=== PATIENT | male | born 1975 | race Caucasian/White ===

== ENCOUNTER 2024-03-05 13:00 | Outpatient (RCR) | payer MEDICAID, SELFPAY ==
[2024-02-23 12:07] VITALS: BP 120/80; PULSE 68; TEMP 37.1
[2024-02-23 12:08] VITALS: BMI 31.1
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
--- NOTE | 2024-02-23 23:51 | P.HPPSP_ITS ---
[facility] Date of Service: 02/23/24 Chief Complaint: depression,anxiety Sources of Information: patient interviewed, chart reviewed and crisis/core team assessment reviewed Additional Sources of Information: Patient prefers to go by [facility] Narrative: This is the first [facility] admission for this 48 yo male with depression who was referred by his PCP office. I've been on a number of waiting lists (to see a psych provider) but it hasn't been going anywhere . He reports that his PCP has tried him on some antidepressant medications but he feels it's not doing much . He reports a history of alcoholism and cannabis addiction and says he has endeavored to live a sober life for the past 8 years , he had a relapse 3 years ago, it's not been easy but says he recognizes that he had been using substances as a way to numb certain feelings . He says he has also been clear of all substances including caffeine and nicotine for the past 2 yrs, 9 months, 20 days. [facility] Medical History (Updated 03/04/24 @ 09:03 by Quiana Hernández MD) Amblyopia of both eyes Psoriasis Femur fracture Surgical History (Updated 02/23/24 @ 12:03 by Natalya Elliott RN) History of hip replacement H/O splenectomy Diagnostics Vital Signs (24Hr): Vital Signs - 24 hr 02/23/24 12:07 Temperature 98.8 F Pulse Rate 68 Blood Pressure 120/80 BMI result Body Mass Index 31.1 Meds/Allergies Meds Home Medications ?Medication ?Instructions ?Recorded ?Confirmed ?Type escitalopram oxalate 10 mg tablet 10 mg PO DAILY 02/23/24 02/23/24 History nicotine (polacrilex) 4 mg gum See Rx Instructions .Route .COMPLEX 02/23/24 02/23/24 History Allergies Allergies Allergy/AdvReac Type Severity Reaction Status Date / Time No Known Allergies Allergy Verified 02/23/24 12:04 Mental Status Exam Mental Status Exam Narrative: MSE:Alert, oriented, in no acute distress. Calm, cooperative, engaged. No psychomotor agitation or neurovegetative retardation. Eye contact maintained. Mood depressed, affect constricted. Speech normal. Thought process linear, coherent. Thought content related to stressors, transient hopelessness, denies SI or HI. No paranoia or delusional content elicited. No evidence of psychosis. Insight and judgment - fair but adequate. Telehealth Telehealth Telehealth Platform: Other (please specify) ([employer]) Location of provider rendering services: other (private office) Location of patient: other ([facility]) Patient Identification confirmed using: Name, : Yes Telehealth method: video Patient verbally consented to treatment: Yes Assessment & Plan Assessment & Plan (1) MDD (major depressive disorder), recurrent severe, without psychosis: Status: Acute Code(s): F33.2 - Major depressive disorder, recurrent severe without psychotic features (2) PRINCE (generalized anxiety disorder): Status: Acute Code(s): F41.1 - Generalized anxiety disorder (3) Cannabis dependence in remission: Status: Acute Code(s): F12.21 - Cannabis dependence, in remission (4) Alcohol dependence in remission: Status: Acute Code(s): F10.21 - Alcohol dependence, in remission Plan Admit to [facility] VS reviewed: abrefile, BP 120/80;?68 bpm increase escitalopram to 20 mg qd continue other regular medications Routine lab work ordered as indicated EKG, routine for baseline QTc for medication considerations as indicated UDS as indicated MassPat reviewed Continue to monitor as per protocol Patient educated on: diagnosis, medication risk/benefits and substance abuse Informed Consent: understands Reason for continued partial hosp. stay Substantial Risk for: inability to function, rapid decompensation and med/psych decompensation Certification I certify that partial hospital treatment is medically necessary due to the symptoms and problems resulting from the patient's mental illness and the failure to treat the patient at the partial hospital level of care would likely result in the patient requiring inpatient psychiatric care which could not be prevented at a less intensive level of care. Time Spent With Patient Time: Total time managing care of this patient today __60__ minutes.
--- NOTE | 2024-02-24 14:27 | HO.PHP ---
PHP AdminShira informed the team that Howard will not be in attendance to program today due to transportation not picking him up, no safety concerns reported. Howard will be in attendance to program tomorrow.
--- NOTE | 2024-03-05 23:05 | P.PNPSP_ITS ---
Subjective Subjective Date of Service: 03/05/24 Reason For Visit: depression,anxiety Interim History: Patient seen for follow-up, anticipating discharge at the end of program today.? Reports no acute issues or concerns. Medication compliant, medications well- tolerated. Denies any adverse effects.? Mood is stable.? Denies any hopelessness or SI. Denies thoughts of harming self or others at this time. Denies any aggressive ideation or HI. Denies any paranoia or AH or VH. Sleep, appetite, energy stable. Alert, oriented, in no acute distress. Calm, cooperative. Mood stable, affect appropriate. Speech normal. Thought process linear, coherent, more goal- directed. Thought content related to stressors, future-oriented, denies any helplessness, hopelessness or SI.? No aggressive ideation or HI. No paranoia or delusional content elicited. No evidence of psychosis. Insight and judgment f air-good. Discharge from [facility] Continue regular medications Refills sent to pharmacy Will defer further medication management to outpatient provider *Safety plan reviewed *Discharge diagnoses, treatment course, discharge plan have been reviewed with patient (including medication regime, medication management, potential side effects) as well as treatment rationale were also revisited *Discharge paperwork signed and given to patient, copy sent for scanning to chart Mental Status Exam Mental Status Exam Narrative: MSE:Alert, oriented, in no acute distress. Calm, cooperative, engaged. No psychomotor agitation or neurovegetative retardation. Eye contact maintained. Mood depressed, affect constricted. Speech normal. Thought process linear, coherent. Thought content related to stressors, transient hopelessness, denies SI or HI. No paranoia or delusional content elicited. No evidence of psychosis. Insight and judgment - fair but adequate. Diagnostics Vital Signs (24Hr): BMI result Body Mass Index 31.1 Assessment & Plan Assessment & Plan (1) MDD (major depressive disorder), recurrent severe, without psychosis: Status: Acute Code(s): F33.2 - Major depressive disorder, recurrent severe without psychotic features (2) PRINCE (generalized anxiety disorder): Status: Acute Code(s): F41.1 - Generalized anxiety disorder (3) Cannabis dependence in remission: Status: Acute Code(s): F12.21 - Cannabis dependence, in remission (4) Alcohol dependence in remission: Status: Acute Code(s): F10.21 - Alcohol dependence, in remission Plan Admit to [facility] VS reviewed: gracie, BP 120/80;?68 bpm increase escitalopram to 20 mg qd continue other regular medications Routine lab work ordered as indicated EKG, routine for baseline QTc for medication considerations as indicated UDS as indicated MassPat reviewed Continue to monitor as per protocol Certification I certify that partial hospital treatment is medically necessary due to the symptoms and problems resulting from the patient's mental illness and the failure to treat the patient at the partial hospital level of care would likely result in the patient requiring inpatient psychiatric care which could not be prevented at a less intensive level of care. Total time managing care of this patient today ____ minutes. Discharge Plan Discharge Attending provider: Quiana Hernández Medications: New nicotine 14 mg/24 hr patch 24 hour 1 patch transdermal DAILY Qty: 14 0RF Rx Instructions: apply one patch daily; remove patch every evening before bed bupropion HCl 100 mg tablet sustained-release 12 hr 100 mg PO QAM Qty: 30 0RF Continued nicotine (polacrilex) 4 mg Gum See Rx Instructions .ROUTE .COMPLEX Rx Instructions: Q 30 minutes as needed. escitalopram oxalate 20 mg tablet 20 mg PO DAILY Qty: 30 0RF Discontinued escitalopram oxalate 10 mg tablet 10 mg PO DAILY Stand Alone Forms: Patient Portal Discharge page Patient Education: Depression (DC) Print Language: Lithuanian
== END 2024-03-05 23:59 | disposition home or self-care (01) ==
LOC: HO.PHPA 13:00
PROVIDERS: Visit Provider Psychiatry & Neurology Psychiatry
DX: F33.2 Major depressive disorder, recurrent severe without psychotic features (principal); F41.1 Generalized anxiety disorder; F12.21 Cannabis dependence, in remission; F10.21 Alcohol dependence, in remission; Z79.899 Other long term (current) drug therapy
CPT/HCPCS: 90791; 90853

== ENCOUNTER → 2024-03-05 13:00 | Outpatient (BNV) | CPT/HCPCS: 99213; 99499 ==

== ENCOUNTER 2024-03-05 13:54 | Outpatient (REF) | payer MEDICAID, SELFPAY ==
[2024-03-05 14:22] LABS: MANUAL DIFF FLAG NO
[2024-03-05 14:43] LABS: Basophils Absolute Auto 0.1 X10*3/uL (0.0-0.2); Basophils Percent Auto 0.6 % (0-2); Eosinophils Absolute Auto 0.1 X10*3/uL (0.0-0.4); Eosinophils Percent Auto 1.8 % (0-4); Hematocrit 43.9 % (42.0-52.0); Hemoglobin 15.2 g/dl (14.0-18.0); Imm Gran Abs Auto 0.02 X10*3/uL (0.00-0.03); Imm Gran Pct Auto 0.3 % (0.0-0.4); Lymphocytes Absolute Auto 2.9 X10*3/uL (1.2-4.9); Lymphocytes Percent Auto 36.4 % (20-40); Mean Corpuscular HGB Conc 34.6 g/dl (31.0-36.0); Mean Corpuscular Hemoglobin 30.3 pg (27.0-33.0); Mean Corpuscular Volume 87.5 fL (80.0-98.0); Mean Platelet Volume 9.5 fL (9.4-12.4); Monocytes Absolute Auto 0.7 X10*3/uL (0.1-1.2); Monocytes Percent Auto 8.8 % (2-11); Neutrophils Absolute Auto 4.2 x10*3/uL (2.0-8.3); Neutrophils Percent Auto 52.1 % (45-73); Platelet Count 356 X10*3/uL (160-400); Red Blood Count 5.02 X10*6/uL (4.60-5.80); Red Cell Distribution Width 14.4 % (11.0-16.0)
[2024-03-05 14:49] LABS: Estimated Average Glucose 114 mg/dL; Hemoglobin A1c % 5.6 % (<6.0); Total Hemoglobin (HGBA1C) 3794.9979 umol/L
[2024-03-05 15:10] LABS: Alanine Aminotransferase 30 U/L (0-40); Alkaline Phosphatase 64 U/L (39-117); Anion Gap 11 (12-20); Aspartate Amino Transferase 23 U/L (5-37); Bilirubin Total 0.3 mg/dL (0.0-1.0); Blood Urea Nitrogen 12 mg/dL (9-16); Calcium 8.8 mg/dL (8.4-10.2); Carbon Dioxide 22 mmol/L (22-29); Chloride 106 mmol/L (96-108); Estimated Glomerular Filt Rate > 60; Glucose Random 118 mg/dL (60-115); Potassium 4.1 mmol/L (3.3-5.1); Sodium 135 mmol/L (135-145); Total Protein 6.7 g/dL (6.5-8.0)
[2024-03-05 15:26] LABS: Free T4 (Free Thyroxine) 1.12 ng/dL (0.71-1.85); Thyroid Stimulating Hormone 0.97 uIU/mL (0.32-4.0); Vitamin D 25-OH Total 17.1 ng/mL (>30)
[2024-03-05 15:40] LABS: Folate 9.7 ng/mL (> or = 4.0); Vitamin B12 939 pg/mL (200-900)
[2024-03-09 21:48] LABS: Zinc 62 mcg/dL (60-130)
[2024-03-11 13:33] LABS: Testosterone, Total 378 ng/dL (250-1100)
[2024-03-12 16:04] LABS: Vitamin B1 13 nmol/L (8-30)
== END 2024-03-05 13:55 | disposition home or self-care (01) ==
LOC: HO.LAB 13:54
PROVIDERS: Visit Provider Psychiatry & Neurology Psychiatry
DX: F33.2 Major depressive disorder, recurrent severe without psychotic features (principal); F10.21 Alcohol dependence, in remission
CPT/HCPCS: 36415; 80053; 82306; 82607; 82746; 83036; 83735; 84403; 84425; 84439; 84443; 84630; 85025